=== PATIENT | female | born 1970 | race Caucasian/White ===

== ENCOUNTER 2018-08-28 18:40 | Emergency (ER) | payer SELFPAY ==
--- NOTE | 2018-08-28 19:27 | EDPHY ---
H & P Time Seen by Provider: 08/28/18 19:20 HPI/ROS: CHIEF COMPLAINT: Left knee injury HISTORY OF PRESENT ILLNESS: The patient is a 48-year-old female with history of hypertension who presents emergency department after injuring her left knee. Patient states she was standing when she felt her knee suddenly gave out. She feels as though"my knee dislocated."She feels as though it is back in place. She now has moderate pain at the knee. No numbness or tingling. No previous knee injury or dislocation. The patient did not fall. She has been able to walk on it since the event. REVIEW OF SYSTEMS: 10 systems were reveiwed and are negative with the exception of the elements mentioned in the history of present illness. Past Medical/Surgical History: Includes hypertension Past surgical history: No knee surgery Smoking Status: Current some day smoker Physical Exam: General Appearance: Alert and no distress. Head: Pupils equal. Normal. Respiratory: No respiratory distress. Cardiac: regular rate and rhythm. Extremities: The patient has swelling of her left knee. There is mild diffuse tenderness palpation. The patellar appears in place. Patient is neurovascular intact distally. Skin: No rashes or lesions. Neuro: Alert. Normal mood and affect. Constitutional: Initial Vital Signs Temperature (C) 36.6 C 08/28/18 18:46 Heart Rate 63 08/28/18 18:46 Respiratory Rate 18 08/28/18 18:46 Blood Pressure 215/103 H 08/28/18 18:46 O2 Sat (%) 99 08/28/18 18:46 O2 Delivery Mode Room Air Allergies/Adverse Reactions: No Known Allergies Allergy (Unverified 08/28/18 18:50) Home Medications: Medication Instructions Recorded Lisinopril 08/28/18 Medical Decision Making - Diagnostics Imaging Results: Imaging Impressions Knee X-Ray 08/28/18 19:27 Impression: 9 mm cortical chip avulsion fracture from the anterior aspect of the lateral femoral condyle. ED Course/Re-evaluation: In the emergency department I discussed possible etiologies with the patient. I answered all her questions. X-ray of left knee was ordered. Left knee x-ray: Please refer the dictated report by the radiologist. There is a 9 mm avulsion fracture of the anterior portion of the lateral femoral condyle Discussed results with the patient. I answered all her questions. He was placed in a knee immobilizer. She was given crutches. She was given follow-up with Orthopedic surgery. Differential Diagnosis: My differential includes but is not limited to fracture, knee dislocation, patellar dislocation, ligamentous injury, sprain, meniscus injury, vascular injury Departure - Departure Disposition: Home, Routine, Self-Care Clinical Impression: Patellar dislocation Qualifiers: Encounter type: initial encounter Laterality: left Qualified Code(s): S83.005A - Unspecified dislocation of left patella, initial encounter Femur fracture, left Qualifiers: Encounter type: initial encounter Femur location: lateral condyle Fracture type : closed Fracture alignment: displaced Qualified Code(s): S72.422A - Displaced fracture of lateral condyle of left femur, initial encounter for closed fracture Condition: Fair Instructions: Patellar Dislocation (ED), Knee Immobilizer (ED) Additional Instructions: You likely dislocated your patella. This caused a small chip fracture of your femoral condyle. Wear your knee immobilizer. Use your crutches. Follow up with Orthopedics. Referrals: Pranav Neal MD [Medical Doctor] - 5-7 days, call for appt.
[2018-08-28 20:38] VITALS: BP 126/70
== END 2018-08-28 20:56 | disposition home or self-care (01) ==
DX: S72.422A Displaced fracture of lateral condyle of left femur, initial encounter for closed fracture (principal); S83.005A Unspecified dislocation of left patella, initial encounter; I10 Essential (primary) hypertension; F17.200 Nicotine dependence, unspecified, uncomplicated; X50.9XXA Other and unspecified overexertion or strenuous movements or postures, initial encounter; Y92.9 Unspecified place or not applicable; Y93.9 Activity, unspecified; Y99.9 Unspecified external cause status